=== PATIENT | male | born 1980 | race African-American/Black ===

== ENCOUNTER 2023-08-10 01:16 | Inpatient (IN) | payer OTHER ==
[~2023-08-10] VITALS: Ht 177.8 cm; Wt 99.8 kg
[2023-08-10 02:11] LABS: ANION GAP 6 mmol/L (8-16); CALCIUM, TOTAL 8.9 mg/dL (8.8-10.5); CARBON DIOXIDE 32 mmol/L (22-29); CHLORIDE 103 mmol/L (98-107); CREATININE 0.89 mg/dL (0.60-1.30); GLOMERULAR FILTR. RATE CALC > 60 mL/min (>60); GLUCOSE,RANDOM 86 mg/dL (70-110); POTASSIUM 3.2 mmol/L (3.5-5.1); SODIUM SERUM 141 mmol/L (136-145); UREA NITROGEN, BLOOD 10 mg/dL (7-18)
[2023-08-10 02:16] LABS: BASOPHILS % (AUTO) 0.4 % (0.0-2.0); EOSINOPHILS % (AUTO) 1.4 % (1.0-6.0); HEMATOCRIT 38.7 % (41-53); HEMOGLOBIN 12.4 g/dL (13.5-17.5); LYMPHOCYTES # (AUTO) 1.9 K/uL (1.0-4.8); LYMPHOCYTES % (AUTO) 25.6 % (22.0-44.0); MEAN CORPUSCULAR HEMOGLOBIN 22.7 pg (26.0-34.0); MEAN CORPUSCULAR HGB CONC 32.2 G/dL (31.0-37.0); MEAN CORPUSCULAR VOLUME 71 fL (80-100); MONOCYTES # (AUTO) 0.5 K/uL (0.1-1.0); MONOCYTES % (AUTO) 6.6 % (2.0-9.0); NEUTROPHILS # (AUTO) 4.9 K/uL (1.8-7.7); PLATELET COUNT (AUTO) 159 K/uL (150-450); RED BLOOD CELL COUNT(AUTO) 5.48 MIL/uL (4.50-5.90); RED CELL DISTRIBUTION WIDTH 13.8 % (11.5-14.5); WHITE BLOOD COUNT (AUTO) 7.5 K/uL (4.5-11.0)
[2023-08-10 02:17] LABS: ALANINE AMINOTRANSFERASE 28 U/L (12-78); ALBUMIN 3.6 g/dL (3.4-5.0); ALKALINE PHOSPHATASE 112 U/L (46-116); ASPARTATE AMINOTRANSFERASE 28 U/L (15-37); BILIRUBIN,TOTAL 0.3 mg/dL (0.1-1.0); TOTAL PROTEIN, SERUM 7.2 g/dL (6.4-8.2)
[2023-08-10 02:24] LABS: ALCOHOL, BLOOD (SERUM) < 3 mg/dL (0-10)
[2023-08-10 02:25] LABS: ACETAMINOPHEN < 2 mcg/mL (10-30)
[2023-08-10 02:29] LABS: SALICYLATE 1.2 mg/dL (2.8-20.0)
[2023-08-10 02:44] LABS: RBC MORPHOLOGY COMMENT ABNORMAL RBC MORPH
[2023-08-10] MEDS: POTASSIUM CHLORIDE 20 MEQ ER TABLET PO ONE (05:49)
[2023-08-10 06:09] LABS: PH,URINE DRUG SCREEN 7.5 (5.0-8.0)
[2023-08-10 06:14] LABS: ALCOHOL, URINE DRUG SCREEN NEGATIVE (NEGATIVE); AMPHET/METH SCREEN,URINE NEGATIVE (NEGATIVE); BARBITURATE SCREEN, URINE NEGATIVE (NEGATIVE); BENZODIAZEPINES SCREEN,URINE NEGATIVE (NEGATIVE); CANNABINOID SCREEN,URINE NEGATIVE (NEGATIVE); COCAINE SCREEN,URINE NEGATIVE (NEGATIVE); METHADONE SCREEN, URINE NEGATIVE (NEGATIVE); OPIATE SCREEN,URINE NEGATIVE (NEGATIVE); PHENCYCLIDINE SCREEN,URINE NEGATIVE (NEGATIVE)
[2023-08-10 07:03] VITALS: BP 144/94; PULSE 57; RESP 18; TEMP 98.2
[2023-08-10] MEDS ORDERED: ALBUTEROL SULFATE 2.5 MG/0.5 ML NEB SOLUTION NEB PRN (07:45)
[2023-08-10] MEDS: SODIUM CHLORIDE 0.9% 1,000 ML IV SCH (07:45)
[2023-08-10] MEDS ORDERED: ONDANSETRON HCL 4 MG/2 ML VIAL IVP PRN (07:45)
[2023-08-10] MEDS ORDERED: ACETAMINOPHEN 325 MG TABLET PO PRN (07:45)
[2023-08-10] MEDS ORDERED: IPRATROPIUM BROMIDE 0.5 MG/2.5 ML NEB SOLUTION NEB PRN (07:45)
[2023-08-10 08:16] VITALS: BP 157/86; PULSE 47; RESP 19; TEMP 98
[2023-08-10] MEDS: FAMOTIDINE 20 MG/2 ML VIAL IVP SCH (09:00)
[2023-08-10 09:19] LABS: % IRON SATURATION 20.3 % (30-44); IRON, SERUM 50 mcg/dL (50-175); TOTAL IRON BINDING CAPACITY 246 mcg/dL (250-450)
[2023-08-10 20:10] VITALS: BP 126/63; PULSE 87; RESP 20; TEMP 98
[2023-08-11 04:30] VITALS: BP 133/76; PULSE 52; RESP 20; TEMP 97.7
[2023-08-11 08:16] VITALS: BP 129/70; PULSE 49; RESP 20; TEMP 98.1
[2023-08-11 09:17] LABS: BASOPHILS % (AUTO) 0.4 % (0.0-2.0); HEMATOCRIT 42.8 % (41-53); HEMOGLOBIN 13.5 g/dL (13.5-17.5); LYMPHOCYTES # (AUTO) 1.3 K/uL (1.0-4.8); LYMPHOCYTES % (AUTO) 22.7 % (22.0-44.0); MEAN CORPUSCULAR HEMOGLOBIN 22.6 pg (26.0-34.0); MEAN CORPUSCULAR HGB CONC 31.5 G/dL (31.0-37.0); MEAN CORPUSCULAR VOLUME 72 fL (80-100); MONOCYTES # (AUTO) 0.4 K/uL (0.1-1.0); MONOCYTES % (AUTO) 7.4 % (2.0-9.0); NEUTROPHILS % (AUTO) 67.5 % (40.0-70.0); PLATELET COUNT (AUTO) 178 K/uL (150-450); RED BLOOD CELL COUNT(AUTO) 5.99 MIL/uL (4.50-5.90); WHITE BLOOD COUNT (AUTO) 5.9 K/uL (4.5-11.0)
[2023-08-11 09:18] LABS: RBC MORPHOLOGY COMMENT ABNORMAL RBC MORPH
[2023-08-11 09:33] LABS: ALANINE AMINOTRANSFERASE 26 U/L (12-78); ALBUMIN 3.3 g/dL (3.4-5.0); ALKALINE PHOSPHATASE 120 U/L (46-116); ANION GAP 4 mmol/L (8-16); ASPARTATE AMINOTRANSFERASE 17 U/L (15-37); BILIRUBIN,TOTAL 0.2 mg/dL (0.1-1.0); CALCIUM, TOTAL 9.1 mg/dL (8.8-10.5); CARBON DIOXIDE 33 mmol/L (22-29); CHLORIDE 103 mmol/L (98-107); CREATININE 1.04 mg/dL (0.60-1.30); GLOMERULAR FILTR. RATE CALC > 60 mL/min (>60); GLUCOSE,RANDOM 67 mg/dL (70-110); POTASSIUM 4.1 mmol/L (3.5-5.1); SODIUM SERUM 140 mmol/L (136-145); TOTAL PROTEIN, SERUM 7.2 g/dL (6.4-8.2); UREA NITROGEN, BLOOD 9 mg/dL (7-18)
[2023-08-11 19:57] VITALS: BP 125/82; PULSE 69; RESP 20; TEMP 98.2
[2023-08-12 04:05] VITALS: BP 125/95; PULSE 62; RESP 20; TEMP 98.5
[2023-08-12 08:27] VITALS: BP 145/87; PULSE 57; RESP 19; TEMP 98.1
[2023-08-12] MEDS: FAMOTIDINE 20 MG TABLET PO SCH (08:57)
[2023-08-15] MEDS ORDERED: LANO113C6 TP (14:29)
[2023-08-15] MEDS ORDERED: OLAN10TA74 PO (14:29)
[2023-08-15] MEDS ORDERED: LEVAHFA IH (14:29)
[2023-08-15] MEDS ORDERED: BUPR-344 PO (14:29)
[2023-08-15] MEDS ORDERED: DIPH50 PO (14:29)
[2023-08-15] MEDS ORDERED: OXCA300T70 PO (14:29)
== END 2023-08-12 20:46 | DRG 885 ==
LOC: EMS 01:25 → 6S 05:12
PROVIDERS: ADMIT Internal Medicine; ATTEND Internal Medicine
DX: F33.2 Major depressive disorder, recurrent severe without psychotic features (principal); R45.851 Suicidal ideations; T18.9XXA Foreign body of alimentary tract, part unspecified, initial encounter; W44.8XXA Other foreign body entering into or through a natural orifice, initial encounter; Y93.89 Activity, other specified; Y92.89 Other specified places as the place of occurrence of the external cause; Y99.8 Other external cause status
CPT/HCPCS: 74022; 74176; 80053; 80307; 83540; 83550; 84132; 85025; 93005; 99285; G0480; G0481; J3490; J7030